=== PATIENT | female | born 1980 ===

== ENCOUNTER → 2024-09-20 16:07 | Outpatient (REF) | payer BC, SELFPAY | LOC: RAD 16:07 | PROVIDERS: ATTENDING PHYSICIAN Student in an Organized Health Care Education/Training Program; FAMILY PHYSICIAN Nurse Practitioner Family | DX: M53.3 Sacrococcygeal disorders, not elsewhere classified (principal) | CPT/HCPCS: 72220 ==

== ENCOUNTER → 2025-06-15 17:17 | Outpatient (REF) | payer BC, SELFPAY ==
[2025-06-15 18:44] LABS: Vitamin D, 25-OH*** 20.5 ng/mL (30-80)
[2025-06-15 19:33] LABS: Folate 13.7 ng/ml (2.76-20); Vitamin B12 > 1000 pg/ml (239-931)
[2025-06-16 16:13] LABS: Rheumatoid Agglutinin Less Than 10 IU (<10 IU)
[2025-06-16 16:43] LABS: Lyme Antibody Screen, EIA Negative (Negative)
== END ==
LOC: RAD 17:17
PROVIDERS: ATTENDING PHYSICIAN Nurse Practitioner Family
DX: M54.50 Low back pain, unspecified (principal); Z91.81 History of falling
CPT/HCPCS: 36415; 72110; 73523; 82306; 82607; 82746; 84443; 86430; 86618; 86812

== ENCOUNTER → 2025-06-28 18:38 | Outpatient (REF) | payer BC, SELFPAY | LOC: MRI 18:38 | PROVIDERS: ATTENDING PHYSICIAN Nurse Practitioner Family | DX: M53.3 Sacrococcygeal disorders, not elsewhere classified (principal); M25.50 Pain in unspecified joint; R20.2 Paresthesia of skin | CPT/HCPCS: 70553; A9575 ==

== ENCOUNTER → 2025-07-01 17:04 | Outpatient (REF) | payer BC, SELFPAY | LOC: MRI 17:04 | PROVIDERS: ATTENDING PHYSICIAN Nurse Practitioner Family | DX: M79.18 Myalgia, other site (principal); R20.2 Paresthesia of skin | CPT/HCPCS: 72158; A9575 ==